=== PATIENT | female | born 1965 | race Caucasian/White ===

== ENCOUNTER 2017-06-11 07:33 | Inpatient (IN) | payer BC, OTHER ==
[~2017-06-11] VITALS: Ht 167.6 cm; Wt 81.6 kg
[2017-06-12] MEDS ORDERED: ACETAMINOPHEN 325 MG TABLET PO PRN (15:00)
[2017-06-12] MEDS ORDERED: HYDROXYZINE PAMOATE 25 MG CAPSULE PO PRN (15:00)
[2017-06-12] MEDS ORDERED: ONDANSETRON 4 MG/2 ML VIAL IM PRN (15:00)
[2017-06-12] MEDS ORDERED: LOPERAMIDE HCL 2 MG CAPSULE PO PRN ×2 (15:00)
[2017-06-12] MEDS ORDERED: LORAZEPAM 2 MG/1 ML VIAL IM PRN (15:00)
[2017-06-12] MEDS ORDERED: diphenhydrAMINE 50 MG CAPSULE PO PRN (15:00)
[2017-06-12] MEDS ORDERED: LORAZEPAM 1 MG TABLET PO PRN ×2 (15:00)
[2017-06-12] MEDS ORDERED: MAG HYDROX/AL HYDROX/SIMETH 30 ML LIQUID UDC PO PRN (15:00)
[2017-06-12] MEDS ORDERED: CLONIDINE HCL 0.1 MG TABLET PO PRN (15:00)
[2017-06-12] MEDS ORDERED: ONDANSETRON ODT 4 MG TAB.RAPDIS SL PRN (15:00)
[2017-06-12 15:29] LABS: *URINE HCG, QUAL NEGATIVE (NEGATIVE)
[2017-06-12 15:34] LABS: ALANINE AMINOTRANSFERASE 24 U/L (14-59); ALKALINE PHOSPHATASE 119 U/L (50-136); ASPARTATE AMINOTRANSFERASE 26 U/L (15-37); BILIRUBIN,TOTAL 0.3 mg/dL (0.2-1.0); CARBON DIOXIDE 27 mmol/L (21-32); CHLORIDE 101 mmol/L (98-107); CREATININE 0.9 mg/dL (0.6-1.3); GLUCOSE 109 mg/dL (74-106); MAGNESIUM 1.9 mg/dL (1.8-2.4); POTASSIUM 3.7 mmol/L (3.5-5.1); TOTAL PROTEIN, SERUM 7.9 g/dL (6.4-8.2); UREA NITROGEN, BLOOD 17 mg/dL (7-18)
[2017-06-12 15:36] LABS: BASOPHILS % (AUTO) 0.4 % (0.0-2.0); EOSINOPHILS # (AUTO) 0.3 K/uL (0.0-0.7); EOSINOPHILS % (AUTO) 3.3 % (0.0-7.0); HEMATOCRIT 41.8 % (31.2-41.9); HEMOGLOBIN 14.4 g/dL (10.9-14.3); LYMPHOCYTES # (AUTO) 1.9 K/uL (20.0-40.0); MEAN CORPUSCULAR HEMOGLOBIN 30.2 uug (24.7-32.8); MEAN CORPUSCULAR HGB CONC 34 g/dL (32.3-35.6); MEAN CORPUSCULAR VOLUME 87.6 fL (75.5-95.3); MONOCYTES # (AUTO) 0.5 K/uL (2.0-10.0); MONOCYTES % (AUTO) 6.6 % (0.0-11.0); NEUTROPHILS # (AUTO) 5.1 K/uL (1.8-8.9); NEUTROPHILS % (AUTO) 65.7 % (38.5-71.5); PLATELET COUNT (AUTO) 257 K/uL (179-408); RED BLOOD CELL COUNT(AUTO) 4.77 MIL/uL (3.63-4.92); WHITE BLOOD COUNT (AUTO) 7.8 K/uL (3.8-11.8)
--- NOTE | 2017-06-12 15:50 | NUR ---
PRE ADMISSION 51 year old female at intake office, alert and oriented x4. Noted with anxious and worried affect. bp: 121/85 hr: 78 t: 98.0 r: 16 o2 sat: 96% room air. patient reports no known drug or food allergies. Patient reports past medical history of: bipolar d/o, insomnia, hysterectomy, appendectomy, endometriosis, and laparoscopic endometrial excisions x5. Patient denies any history of seizures. primary care physician: Dr. Aneesh Fields in [place]. Patient reports substance use of: methadone 30mg daily PO for 2.5 years has been taking for pain mgmt of endometriosis, per patient medication is having bad side effects as having GI "issues" and weight gain. Patient brought a list of home medications that she takes at home, but did not bring medications with her. Patient denies any family history of substance abuse and denies any family history of pre existing medical conditions. patient was educated regarding all unit policies and procedures with good verbal understanding. Patient was seen by Dr. Blas at intake office, prior to nursing pre admission assessment.
--- NOTE | 2017-06-12 16:05 | NUR ---
ADMISSION Patient arrived to unit, noted ambulating with steady gait. patients body search completed by female MANAGER MILITARY, no contraband found. Body assessment completed, patient skin is intact, no breakdown, bruising or discoloration was noted. patient is 5 feet 6 inches tall and weighs 180 lbs. Patient was oriented to unit and to room, educated regarding call light use with good verbal understanding. Patient reports she lives alone in [facility]. patient reports substance use of: methadone 30mg daily by mouth for 2.5 years, last used: 06/12/2017 at 1000, 10mg. Reports first time in detox/rehab. Patient reports began taking methadone for pain mgmt due to endometriosis pain mgmt. reports past medical history of: insomnia, and bipolar d/o Dx: 12 years ago. hysterectomy in 2002, appendectomy in 1977, Laparoscopic endometrial excision x5 and endometriosis. Patient brought a list of home medications that she takes, but did not bring any medications with her. List of medications were entered to reconciled medications under [facility]. patient denies any history of seizures. Patient currently laying in bed, alert and oriented x4, noted with restlessness, anxiety and irritable, with admitting cow score of: 4, and admitting ciwa score of: 6. Patients respirations are even and unlabored, no SOB, lungs clear upon auscultation. Patients abdomen is soft with mild distention, positive bowel sounds heard in all quadrats, patients pupils are equal and reactive to light, 3mm. Patients safety measures are in place. patient is currently to begin a modified Ativan taper as ordered, and will continue under close observation for any s/sx of methadone withdrawal. will continue to monitor. psychiatrist was notified of admission. will continue to monitor.
[2017-06-12] MEDS ORDERED: ESTR0.5T PO (16:14)
[2017-06-12] MEDS ORDERED: BUPR-96 PO (16:14)
[2017-06-12] MEDS ORDERED: TOPI100T PO (16:14)
[2017-06-12] MEDS ORDERED: QUET200T PO (16:14)
[2017-06-12] MEDS ORDERED: CITA10TA9 PO (16:14)
[2017-06-12] MEDS ORDERED: ESZO3TAB27 PO (16:14)
[2017-06-12 17:11] VITALS: BP 121/85
[2017-06-12] MEDS: LORAZEPAM 1 MG TABLET PO SCH ×2 (17:17→21:13)
[2017-06-12 18:14] LABS: ETHANOL < 3 MG/DL (0-0)
[2017-06-12 18:44] LABS: *AMPHETAMINE, URINE NEGATIVE (NEGATIVE); *BARBITURATE, URINE NEGATIVE (NEGATIVE); *CANNABINOID, URINE NEGATIVE (NEGATIVE); *COCCAINE, URINE NEGATIVE (NEGATIVE); *OPIATE, URINE NEGATIVE (NEGATIVE); *PHENCYCLIDINE SCREEN,URINE NEGATIVE (NEGATIVE)
--- NOTE | 2017-06-12 18:48 | NUR ---
END OF SHIFT Patient alert and oriented x4, Patient has anxious, worried, and irritable facial expression. Mood is flat and labile. Patient continues under close observation, placed on modified Ativan taper as ordered. Patient with admitting Dx: methadone withdrawal. During shift presented with: restlessness, anxiety, and irritability initial ciwa score of: 6, and cow score of: 4 and last ciwa score of: 6, last cow score of: 4 Received no PRN medications during shift. patient was encouraged adequate PO fluid intake as tolerated, patient encouraged to develop coping skills and utilization of non pharmacological interventions. Patient was encouraged to participate in therapy session.Encouraged diversional activities to alleviate anxiety. Denies any SI/HI. Safety measures are in place. Call light kept with in reach, continues under close observation. Patient endorsed to nuclear process engineer nurse, all pertinent information was discussed. Will continue to monitor.
[2017-06-12 18:58] LABS: THYROID STIMULATING HORMONE 1.972 mIU/mL (0.358-3.740)
--- NOTE | 2017-06-12 19:00 | NUR ---
Start of Shift Patient Received. Patient is in bed awake, alert and verbally responsive. Breathing even and non labored. Patient is noted to be anxious, easily irritable, and flat. Per endorsement, Patient is currently receiving a modified 6 day Ativan taper. Patient was given PRN Ativan 2mg and tolerated well. All needs attended to promptly. Will continue to monitor.
[2017-06-12] MEDS ORDERED: PHEN-704 PO (19:54)
[2017-06-12] MEDS ORDERED: NEOM14.216 TP (19:54)
[2017-06-12] MEDS ORDERED: BISM262T18 PO (19:54)
[2017-06-12] MEDS ORDERED: TOPIRAMATE 100 MG TABLET PO ONE (20:45)
[2017-06-12] MEDS ORDERED: QUETIAPINE FUMARATE 200 MG TABLET PO ONE (20:45)
[2017-06-12 20:56] VITALS: BP 114/64
[2017-06-12] MEDS: GABAPENTIN 300 MG CAPSULE PO SCH (21:13)
--- NOTE | 2017-06-12 21:15 | NUR ---
MD Communication/Vitals Refused Medications explained to patient and patient was noted easily agitated due to patient not receiving home medications of Seroquel, Topamax, and Lunesta. explained to patient that psychiatrist would need to see and evaluate patient and place orders at that moment. Also explained to patient that Lunesta would not be prescribed here while on unit. Patient states "I'm not understanding. Lunesta is not my problem. I take that daily for sleep. If I dont take it then I dont sleep. I dont want to be awake for 14 days while I'm here." Explained to patient that she could speak to MD in the morning in regards to medication and speak to psychiatrist as for any other medications for sleep. Patient verbalized "I need my mental health medications." Relayed to Psychiatrist with one time orders for Seroquel 200 and Topamax 150mg. orders noted and carried out. Medications administered with routine medications. patient still visibly upset about home medication Lunesta. Patient then verbalized "Im not understanding why it is taking forever to get my luggage to my room or my clothes so I can change, or even my toiletry bag. This is so ridiculous." explained to patient unit protocols and rules which were explained to patient in intake. Patient then stated "no one ever told me any of these rules." Explained to patient that Vitals would be taken at 0000 and 0400. Patient states "You are not going to give me my Lunesta and your are going to wake me up during the night. When I already have problems sleeping." Risks and Benefits explained. Patient refused both vitals. All needs attended to promptly. Will continue to monitor.
[2017-06-13 07:06] LABS: HEPATITIS B SURFACE AG Negative (Negative)
--- NOTE | 2017-06-13 07:12 | NUR ---
End of Shift Patient is in bed awake, alert and verbally responsive. Breathing even and non labored. Patient continues on a modified 6 day Ativan taper. No PRN medications received. Patient received onetime doses home medications of Seroquel 200mg and Topamax 150mg. Patient was noted to be flat, easily irritable, and anxious. Patient slept a total of 7 hours. last noted COWS 8 and CIWA 10. All needs attended to promptly. Will endorse to continue plan of care as ordered.
--- NOTE | 2017-06-13 07:45 | NUR ---
START OF SHIFT Pt is a 51 yr old female, admitted on 06/12/17 for medically supervise withdrawal from methadone use. Pt was place on a 6 day modified Ativan taper to start today on 06/13/17. Subutex is on hold per MD until 06/14/17. Received report from security shift supervisor nurse. No PRN's were given during the night. Pt slept for 7 hrs. Last COWS score was 8 and CIWA score was 10. Pt is currently in bed sleeping with respirations even and unlabored. Safety precautions observed. Call light is within reach. Will continue to monitor.
--- NOTE | 2017-06-13 08:00 | NUR ---
COWS AND CIWA DEFERRED Pt is currently in bed sleeping with respirations even and unlabored. COWS and CIWA score are deferred at this time. safety precautions observed. Will continue to monitor.
[2017-06-13 08:31] VITALS: BP 115/67
[2017-06-13] MEDS ORDERED: INFLUENZA VACCINE 2017-2018 0.5 ML DISP.SYRIN IM ONE (09:00)
[2017-06-13] MEDS ORDERED: TUBERCULIN,PURIF.PROT.DERIV. 5 TU/0.1 ML TEST ID ONE (09:00)
[2017-06-13] MEDS ORDERED: PNEUMOCOCCAL 23-VAL P-SAC VAC 0.5 ML VIAL IM ONE (09:00)
[2017-06-13] MEDS ORDERED: PATIENT MAY USE OWN MED- MD OK PO SCH (09:00)
[2017-06-13] MEDS: GABAPENTIN 300 MG CAPSULE PO SCH ×3 (09:36→20:20)
[2017-06-13] MEDS: ESTRADIOL 1 MG TABLET PO SCH (09:36)
[2017-06-13] MEDS: LORAZEPAM 1 MG TABLET PO SCH ×3 (09:36→20:10)
--- NOTE | 2017-06-13 09:45 | NUR ---
NSG NOTES During medication administration, pt became very agitated in regards to her belongings stating she has been waiting for her toiletries. Pt was spoken to in regards to the units rules and regulations but pt was unable to comprehend. Pt continued to speak out loud and requesting for her toiletries. COWS and CIWA was assessed at 0930. COWS score was 12 and CIWA 11. Report to Sterling administration, in regards to pt belongings. Per Sterling, will speak with pt. Will continue to f/u.
[2017-06-13] MEDS: MIRALAX 17 GM POWD.PACK PO PRN (09:54)
--- NOTE | 2017-06-13 09:54 | NUR ---
PRN GIVEN Pt c/o constipation. Miralax 17gm PRN was given as ordered for constipation. Encouraged increase fluid intake. Will continue to monitor.
[2017-06-13 12:00] VITALS: BP 115/71
[2017-06-13 16:00] VITALS: BP 115/68
[2017-06-13] MEDS: CITALOPRAM 10 MG TABLET PO SCH (16:46)
[2017-06-13] MEDS: buPROPion XL 150 MG TAB.SR.24H PO SCH (16:46)
--- NOTE | 2017-06-13 19:00 | NUR ---
END OF SHIFT Pt is a 51 yr old female, AA&Ox4. Pt was admitted on 06/12/17 for medically supervised withdrawal from methadone. Pt started on 6 day modified Ativan taper and is to start on 6 day Subutex taper on 06/14/17. Pt has been observed with increase fatigue and remained in bed throughout the day. pt refused to attend group sessions. Pt was observed with increase agitation in the morning due to her getting her belongings. Sterling, Sketch Maker, was able to provide the pt with her request and was satisfied. Pt c/o generalized muscle aching, abdominal cramps and headache. Last COWS score was 8 and CIWA score was 9 at 1600. Pt received Miralax PRN for constipation, medication was effective and reported of 2 BM. Encouraged increase fluid intake. Endorsed to welt stitch cleaner nurse.
--- NOTE | 2017-06-13 19:30 | NUR ---
START OF SHIFT Received 51 year old female. Pt noted to be anxious, and irritable. Pt stated " I feel jittery and my head feels cloudy." She complains of stomach cramps, nausea and body aches. Pt is alert and oriented x4. Per endorsement, she received PRN Miralax and reported BM x2. Breathing is even and unlabored, safety measures in place. Will continue to monitor.
[2017-06-13 20:00] VITALS: BP 124/69
[2017-06-13] MEDS: QUETIAPINE FUMARATE 200 MG TABLET PO PRN (20:10)
--- NOTE | 2017-06-13 20:10 | NUR ---
PRN SEROQUEL Pt complains of inability to fall asleep. PRN Seroquel administered as ordered. Safety measures in place. Will continue to monitor.
[2017-06-13] MEDS: TOPIRAMATE 100 MG TABLET PO SCH (20:11)
--- NOTE | 2017-06-13 21:10 | NUR ---
PRN REASSESSMENT PRN medication effective. Pt is lying in bed with eyes closed noted to be asleep. Breathing is even and unlabored. Safety measures in place. Will continue to monitor.
--- NOTE | 2017-06-14 | NUR ---
VITALS REFUSED, COWS/ CIWA DEFERRED 0000 vitals refused. COWS and CIWA deferred d/t pt lying in bed with eyes closed noted to be asleep. Breathing is even and unlabored. Safety measures in place. Will continue to monitor.
--- NOTE | 2017-06-14 04:00 | NUR ---
VITALS REFUSED, COWS/ CIWA DEFERRED 0400 vitals refused. COWS and CIWA deferred d/t pt lying in bed with eyes closed noted to be asleep. Breathing is even and unlabored. Safety measures in place. Will continue to monitor.
--- NOTE | 2017-06-14 07:02 | NUR ---
END OF SHIFT Pt is a 51 year old female. Pt remains alert and oriented x4. She had complaints of stomach cramps, body aches, anxiety, and restlessness during shift. She verbalized that she has trouble sleeping and received PRN Seroquel at 2009. She is scheduled to start her 5 day Subutex taper today. She slept a total of 7 hrs, Intake: 1630mL, Void: x3, BM:0, CIWA: 12, COWS:6. Breathing is even and unlabored, safety measures in place. Endorsed to AM shift.
--- NOTE | 2017-06-14 07:30 | NUR ---
START OF SHIFT Pt is a 51 yr old female, admitted on 06/12/17 for medically supervise withdrawal from methadone use. Pt is on day 2 of 6 day modified Ativan taper and is to start on 5 day Subutex taper today. Received report from overnight caregiver nurse. Pt received Seroquel PRN for sleep. Medication was effective and slept for 8 hrs. Last COWS score was 6 and CIWA score was 12. Pt is currently in bed sleeping with respirations even and unlabored. Safety precautions observed. Call light is within reach. Will continue to monitor.
[2017-06-14 08:13] VITALS: BP 103/63
[2017-06-14] MEDS ORDERED: BUPRENORPHINE HCL 2 MG TAB.SUBL SL PRN (09:00)
[2017-06-14] MEDS: BUPRENORPHINE HCL 2 MG TAB.SUBL SL SCH ×4 (09:12→20:15)
[2017-06-14] MEDS: ESTRADIOL 1 MG TABLET PO SCH (09:12)
[2017-06-14] MEDS: LORAZEPAM 1 MG TABLET PO SCH ×4 (09:12→20:14)
[2017-06-14] MEDS: buPROPion XL 150 MG TAB.SR.24H PO SCH (09:12)
[2017-06-14] MEDS: CITALOPRAM 10 MG TABLET PO SCH (09:12)
[2017-06-14] MEDS: GABAPENTIN 300 MG CAPSULE PO SCH ×3 (09:12→20:14)
[2017-06-14 12:00] VITALS: BP 103/62
--- NOTE | 2017-06-14 14:22 | NUR ---
Therapist prompted client about group times. Client stated she would attend the afternoon group.
[2017-06-14 16:00] VITALS: BP 121/65
--- NOTE | 2017-06-14 17:08 | NUR ---
PRN GIVEN Pt c/o nausea, pt denies any episodes of vomiting. Zofran 4mg SL PRN was giving as ordered. Encouraged increase fluid intake. Will continue to monitor.
--- NOTE | 2017-06-14 18:08 | NUR ---
PRN RE-ASSESSMENT Zofran PRN was effective. Pt denies any n/v.
--- NOTE | 2017-06-14 19:16 | NUR ---
END OF SHIFT NOTE Pt is a 51 yr old female, AA&Ox4. Pt was admitted on 06/12/17 for medically supervised withdrawal from methadone. Pt is on 6 day modified Ativan taper and started on 5 day Subutex taper. Medication was victoriano well. Pt has been cooperative with medication regimen. Pt was encouraged to attend group but refused to go, stating "I don't feel all there". Pt c/o anxiety, abdominal cramping, and nausea. Zofran 4mg SL PRN was given for nausea. Medication was effective. Pt consumed 100% of meals Encouraged increase fluid intake. Last COWS score was 8 and CIWA score was 8 at 1600. Endorsed to manager night nurse.
[2017-06-14 20:00] VITALS: BP 127/71
--- NOTE | 2017-06-14 20:00 | NUR ---
START OF SHIFT NOTE RECEIVED REPORT FROM DAY SHIFT NURSE. PATIENT IS A 51 YEAR OLD FEMALE ADMITTED FOR METHADONE WITHDRAWAL. PATIENT IS ON ATIVAN AND SUBUTEX TAPER. PATIENT WAS GIVEN PRN ZOFRAN . LAST COWS 8 AND CIWA 8. RECEIVED PATIENT IN THE ROOM, WATCHING TV. PATIENT STATES SHES TIRED, ANXIOUS, A LITTLE BIT EDGY, DID NOT ATTEND GROUPS BUT WILL TRY TOMORROW, BACK PAIN 5/10. SAFETY MEASURES IN PLACE. CALL LIGHT IN REACH. WILL CONTINUE TO MONITOR
[2017-06-14] MEDS: QUETIAPINE FUMARATE 200 MG TABLET PO PRN (20:14)
[2017-06-14] MEDS: IBUPROFEN 600 MG TABLET PO PRN (20:14)
--- NOTE | 2017-06-14 20:14 | NUR ---
PRN SEROQUEL AND MOTRIN ADMINISTRATION PATIENT C/O PAIN ON LOWER BACK AND REQUESTS FOR SLEEP AID. WILL MONITOR FOR EFFECTIVENESS
[2017-06-14] MEDS: TOPIRAMATE 100 MG TABLET PO SCH (20:15)
--- NOTE | 2017-06-14 21:14 | NUR ---
PRN MOTRIN RE-ASSESSMENT PATIENT STATES PAIN LEVEL IS 2/10 AT THIS TIME, TOLERABLE.
--- NOTE | 2017-06-14 22:00 | NUR ---
PRN SEROQUEL RE-ASSESSMENT PATIENT IN BED WITH EYES CLOSED. RESPIRATION EVEN AND UNLABORED. SAFETY MEASURES IN PLACE. CALL LIGHT IN REACH . WILL CONTINUE TO MONITOR
--- NOTE | 2017-06-15 | NUR ---
COWS/CIWA DEFERRED PATIENT IN BED WITH EYES CLOSED. VS REFUSED. RESPIRATION EVEN AND UNLABORED. SAFETY MEASURES IN PLACE. CALL LIGHT IN REACH . WILL CONTINUE TO MONITOR
--- NOTE | 2017-06-15 07:14 | NUR ---
END OF SHIFT NOTE PATIENT SLEPT 8 HOURS. FLUID INTAKE 1,355 ML. VOIDED X 4. NO BM. MONITORED PATIENT THROUGHOUT SHIFT. MEDICATION GIVEN ORDERED, TOLERATED WELL AND NO ADVERSE REACTION NOTED. PATIENT WAS C/O LOWER BACK PAIN, PRN TYLENOL GIVE. SHE REQUESTED FOR SLEEP AID , PRN SEROQUEL GIVE. PATIENT IN THE ROOM MOST OF THE SHIFT, PATIENT TENDS TO BE ISOLATIVE. PER PATIENT SHE WILL TRY TO GO AND ATTEND GROUPS TODAY. SAFETY MEASURES IN PLACE. CALL LIGHT IN REACH. WILL CONTINUE TO MONITOR. LAST COWS 8 AND CIWA 7
--- NOTE | 2017-06-15 07:30 | NUR ---
START OF SHIFT RECEIVED PT LAYING IN BED, A/O X4, RESPIRATIONS EVEN AND UNLABORED. PT REPORTS HAVING LOW BACK PAIN, STOMACH CRAMPS, GENERALIZED BODY ACHES, ANXIETY AND INTERMITTENT SWEATING. PT APPEARS AGITATED, STATES, "IF ONLY I CAN GET MY OWN CLOTHES, I HAVE BEEN WEARING THE SAME CLOTHES FOR DAYS." OFFERED PT A PAIR OF HOSPITAL BOTTOMS, AND T-SHIRT BUT PT REFUSED. ALL SAFETY MEASURES IN PLACE. WILL CONTINUE TO MONITOR.
[2017-06-15 08:00] VITALS: BP 103/63
[2017-06-15] MEDS: GABAPENTIN 300 MG CAPSULE PO SCH ×3 (08:59→20:48)
[2017-06-15] MEDS: buPROPion XL 150 MG TAB.SR.24H PO SCH (08:59)
[2017-06-15] MEDS: CITALOPRAM 10 MG TABLET PO SCH (08:59)
[2017-06-15] MEDS: METHOCARBAMOL 750 MG TABLET PO PRN ×2 (08:59→20:47)
[2017-06-15] MEDS: DICYCLOMINE HCL 20 MG TABLET PO PRN ×3 (08:59→22:07)
[2017-06-15] MEDS: LORAZEPAM 1 MG TABLET PO SCH ×2 (08:59→15:52)
--- NOTE | 2017-06-15 08:59 | NUR ---
PRN BENTYL 20 MG PO PRN AND ROBAXIN 750 MG PO PRN GIVEN FOR STOMACH CRAMPS AND BODY ACHES, BACK ACHE 10/04. WILL MONITOR FOR EFFECTIVENESS.
[2017-06-15] MEDS: BUPRENORPHINE HCL 2 MG TAB.SUBL SL SCH ×3 (09:00→20:47)
[2017-06-15] MEDS: ESTRADIOL 1 MG TABLET PO SCH (09:01)
--- NOTE | 2017-06-15 09:59 | NUR ---
REASSESSMENT PT REPORTED MEDS EFFECTIVE FOR STOMACH CRAMPS AND BODY ACHES. BACK ACHE NOW 07/04. WILL CONTINUE TO MONITOR.
--- NOTE | 2017-06-15 11:14 | NUR ---
Therapist prompted client to come to groups today.
[2017-06-15 12:00] VITALS: BP 130/90
[2017-06-15 16:00] VITALS: BP 97/66
--- NOTE | 2017-06-15 16:06 | NUR ---
PRN BENTYL 20 MG PO PRN GIVEN FOR STOMACH CRAMPS. WILL MONITOR FOR EFFECTIVENESS.
--- NOTE | 2017-06-15 19:35 | NUR ---
END OF SHIFT LAST COWS 11 AND CIWA 11 @1600. PT IS LABILE AND EMOTIONALLY VOLATILE, PRESENTS AGITATION, ANXIETY AND RESTLESSNESS. PT VERBALIZED BEING AGITATED AND IRRITABLE THROUGHOUT SHIFT. PT WAS UPSET ABOUT NOT BEING ABLE TO HAVE CERTAIN PERSONAL ITEMS ON UNIT AND DEMANDED THEM TO BE GIVEN TO HER. PAPERWORK WAS FILLED OUT FOR ALLOWED PERSONAL ITEMS TO BE BROUGHT UP FROM [employer]ORAGE AND OTHER ITEMS EXPLAINED TO HER THAT IT WAS NOT ALLOWED ON UNIT. PT VERBALIZED UNDERSTANDING BUT WANTED ITEMS PROMPTLY. PT WAS GIVEN JANE AND GARETT AND WAS EFFECTIVE. ALL SAFETY MEASURES IN PLACE. WILL GIVE PERTINENT INFO AND ENDORSEMENT TO LASTING MACHINE OPERATOR NURSE.
[2017-06-15 20:00] VITALS: BP 118/71
--- NOTE | 2017-06-15 20:00 | NUR ---
START OF SHIFT NOTE RECEIVED REPORT FROM DAY SHIFT NURSE. PATIENT IS A 51 YEAR OLD FEMALE ADMITTED FOR METHADONE WITHDRAWAL. CONTINUE ON ATIVAN AND SUBUTEX TAPER, TOLERATED WELL AND NO ADVERSE REACTION. PATIENT WAS GIVEN PRN BENTYL AND ROBAXIN. LAST COWS 12 AND CIWA 11. RECEIVED PATIENT IN THE ROOM. CLOTHES NOTED ON FLOOR. PATIENT NOTED ANXIOUS, AGITATED, IRRITABLE, ANGRY AND HYPERVERBAL. PATIENT OBSESSED, FOCUSED ON HER BELONGINGS DESPITE UNIT POLICIES. CONTINUE TO REDIRECT AND RE-EDUCATED. SAFETY MEASURES IN PLACE. CALL LIGHT IN REACH. WILL CONTINUE TO MONITOR
[2017-06-15] MEDS: QUETIAPINE FUMARATE 200 MG TABLET PO PRN (20:45)
--- NOTE | 2017-06-15 20:45 | NUR ---
PRN SEROQUEL AND ROBAXIN ADMINISTRATION PATIENT C/O GENERALIZED BODY ACHES 5/10 AND REQUESTS FOR SLEEP AID . WILL MONITOR EFFECTIVENESS
[2017-06-15] MEDS: TOPIRAMATE 100 MG TABLET PO SCH (20:46)
[2017-06-15] MEDS ORDERED: LORAZEPAM 1 MG TABLET PO SCH (21:00)
--- NOTE | 2017-06-15 21:45 | NUR ---
PRN ROBAXIN RE-ASSESSMENT PATIENT STATES ROBAXIN IS HELPFUL . PAIN LEVEL 2/10 AT THIS TIME, TOLERABLE.
--- NOTE | 2017-06-15 22:00 | NUR ---
PRN SEROQUEL RE-ASSESSMENT PATIENT ANXIOUS AND STILL UNABLE TO SLEEP.
[2017-06-15] MEDS: IBUPROFEN 600 MG TABLET PO PRN (22:07)
--- NOTE | 2017-06-15 22:07 | NUR ---
PRN VISTARIL, MOTRIN AND BENTYL ADMINISTRATION PATIENT OF BACK PAIN 5/10 , ABDOMINAL CRAMPING , ANXIETY AND STILL UNABLE TO SLEEP. WILL MONITOR FOR EFFECTIVENESS
--- NOTE | 2017-06-15 23:07 | NUR ---
PRN VISTARILZACKARY AND GARETT RE-ASSESSMENT PATIENT IN BED WITH EYES CLOSED. RESPIRATION EVEN AND UNLABORED. NO FACIAL GRIMACING. SAFETY MEASURES IN PLACE. WILL CONTINUE TO MONITOR.
--- NOTE | 2017-06-16 | NUR ---
COWS/CIWA DEFERRED PATIENT SLEEPING. COWS/CIWA DEFERRED. VS REFUSED. RESPIRATION EVEN AND UNLABORED. SAFETY MEASURES IN PLACE. WILL CONTINUE TO MONITOR.
--- NOTE | 2017-06-16 04:00 | NUR ---
COWS/CIWA DEFERRED PATIENT SLEEPING. COWS/CIWA DEFERRED. VS REFUSED. RESPIRATION EVEN AND UNLABORED. SAFETY MEASURES IN PLACE. WILL CONTINUE TO MONITOR.
--- NOTE | 2017-06-16 07:27 | NUR ---
END OF SHIFT NOTE PATIENT SLEPT 7 HOURS. FLUID INTAKE 796 ML. VOIDED X 2 . NO BM .MONITORED THROUGHOUT SHIFT. PATIENT WAS OBSESSED, FOCUSED ON HER BELONGINGS DESPITE UNIT POLICIES. REDIRECTION AND RE-EDUCATED ON UNIT POLICIES. PATIENT WAS GIVEN PRN SEROQUEL FOR SLEEP., MILDLY EFFECTIVE. PRN VISTARIL GIVEN , ROBAXIN AND MOTRIN FOR PAIN AND BENTYL FOR ABDOMINAL CRAMPING. ENCOURAGE FLUIDS. SAFETY MEASURES IN PLACE. CALL LIGHT IN REACH. WILL CONTINUE TO MONITOR. LAST COWS 8 AND CIWA 7.
--- NOTE | 2017-06-16 07:48 | NUR ---
START OF SHIFT RECEIVED PT LAYING IN BED RESTING, A/OX4, RESPIRATIONS EVEN AND UNLABORED. PT REPORTS BEING VERY TIRED, GENERALIZED BODY ACHES, LOW BACK PAIN, STOMACH CRAMPS, INTERMITTENT SWEATING. ENCOURAGED PT TO ATTEND GROUPS TO PROMOTE COPING. MORE ENCOURAGEMENT NEEDED. SIDE RAILS UPX2, BED IN LOWEST POSITION. CALL LIGHT WITHIN REACH. SAFETY MEASURES IN PLACE. WILL CONTINUE TO MONITOR.
[2017-06-16 08:00] VITALS: BP 100/62
[2017-06-16] MEDS ORDERED: BUPRENORPHINE HCL 2 MG TAB.SUBL SL SCH (09:00)
[2017-06-16] MEDS: ESTRADIOL 1 MG TABLET PO SCH (09:21)
[2017-06-16] MEDS: GABAPENTIN 300 MG CAPSULE PO SCH ×3 (09:21→20:24)
[2017-06-16] MEDS: buPROPion XL 150 MG TAB.SR.24H PO SCH (09:21)
[2017-06-16] MEDS: CITALOPRAM 10 MG TABLET PO SCH (09:21)
[2017-06-16] MEDS: LORAZEPAM 1 MG TABLET PO SCH ×3 (09:22→20:22)
[2017-06-16] MEDS: DICYCLOMINE HCL 20 MG TABLET PO PRN (09:31)
--- NOTE | 2017-06-16 09:31 | NUR ---
PRN BENTYL 20 PO PRN GIVEN FOR STOMACH CRAMPS. WILL MONITOR FOR EFFECTIVENESS.
--- NOTE | 2017-06-16 10:31 | NUR ---
REASSESSMENT PT REPORTED BENTYL WAS EFFECTIVE FOR STOMACH CRAMPS. WILL CONTINUE TO MONITOR.
[2017-06-16 12:00] VITALS: BP 112/77
--- NOTE | 2017-06-16 12:48 | NUR ---
PT APPEARED VERY UPSET, ANGRY AND STARTED CRYING WHILE VERBALIZING HER FEELINGS. PT REFUSED HER LUNCH TRAY. PT STATED, "I FEEL SO FAT AND BLOATED. I WAS NOT LIKE THIS BEFORE. ALL THE OPIATES ARE MAKING ME LIKE THIS! I NEED TO BE ON A LIQUID DIET! I GAINED SO MUCH WEIGHT AND I AM FEELING SO UNCOMFORTABLE, I CAN'T DO THIS!" EXPLAINED TO PT THAT LIQUID DIET IS NOT THERAPEUTIC AT THIS TIME. PT EDUCATED ON BENEFITS OF CURRENT DIET. NEEDS MORE REINFORCEMENT AND ENCOURAGEMENT. DIETITIAN WILL EDUCATE PT ABOUT DIET AND NUTRITION. NOTIFIED .
--- NOTE | 2017-06-16 13:05 | NUR ---
PT AGREED TO HAVE SOMETHING FOR LUNCH. FRUITS WERE ACCEPTED BY THE PT. WILL CONTINUE MONITOR AND PROVIDE SUPPORT.
[2017-06-16] MEDS: DICYCLOMINE HCL 20 MG TABLET PO SCH ×2 (14:26→20:26)
[2017-06-16] MEDS: BUPRENORPHINE HCL 2 MG TAB.SUBL SL SCH ×2 (14:26→20:26)
--- NOTE | 2017-06-16 14:55 | NUR ---
Referred by RN to visit patient as patient had concern about weight loss Patient is 51 y/o female who present to [facility] for medically supervised withdrawal from opioids,patient states has gained since she started on antidepressants medication Spoke with the patient, noted, patient was agitated upset and was crying ,and requested to be on clear liquid diet. Explained that clear liquid diet is not appropriate as it does not provide adequate energy/kcal/protein/mineral/vitamins to stay healthy. Encourage her to consume protein foods and provided calorie diet for her when she d/c home then she can follow up, encourage to start exercising as she mentioned she used to exercise and has operations trainer. Patient agreed to follow up with diet aide for menu selection . Informed diet aide. Will f/u with PO intake, dietitian will be available upon request. Addendum: 06/16/17 at [address] Amended: Links added.
[2017-06-16 16:00] VITALS: BP 127/77
--- NOTE | 2017-06-16 18:34 | NUR ---
END OF SHIFT LAST COWS 10 AND CIWA 9. PT REFUSED LUNCH TODAY, WAS UPSET AND CRIED MULTIPLE TIMES ABOUT HER WEIGHT ISSUES. PT WANTED TO HAVE A LIQUID DIET AND ASKED TO HAVE DIET PILLS. REASSURED PT AND HAD DIETITIAN EDUCATE PT REGARDING NUTRITION AND DIET. PT WAS HEARD YELLING AT DIETIAN IN HER ROOM WITH THE DOOR CLOSED. PT STATED, "THE DIETITIAN DOES NOT KNOW WHAT SHE IS TALKING ABOUT. SHE IS TREATING ME LIKE A REGULAR PERSON." PT STATES SHE DOES NOT BELIEVE SHE HAS A PROBLEM WITH CHEMICAL DEPENDENCY. SHE STATES SHE WAS TAKING METHADONE THAT WAS PRESCRIBED TO HER TO MANAGE HER PAIN AND THEREFORE SHE FEELS SHE DOES NOT NEED TO ATTEND GROUPS OR GO TO REHAB. EDUCATED PT ON RISKS AND BENEFITS HOWEVER PT STATED, "I DONT NEED ALL OF THAT." REPORT WAS GIVEN THAT PT WAS VERY ACTIVE DURING AFTERNOON GROUP. ALL SAFETY MEASURES IN PLACE. WILL GIVE ENDORSEMENT AND PERTINENT INFO TO WOOL HAT SANDING MACHINE OPERATOR NURSE.
[2017-06-16 20:00] VITALS: BP 119/74
--- NOTE | 2017-06-16 20:00 | NUR ---
START OF SHIFT NOTE RECEIVED REPORT FROM DAY SHIFT NURSE. PATIENT IS A 51 YEAR OLD FEMALE ADMITTED FOR METHADONE WITHDRAWAL. CONTINUE ON ATIVAN AND SUBUTEX TAPER, TOLERATED WELL AND NO ADVERSE REACTION. PATIENT WAS AGITATED AND ANXIOUS DURING THE DAY. PRN BENTYL GIVEN. LAST COWS 10 AND CIWA 9. RECEIVED PATIENT IN THE ROOM. PATIENT ANXIOUS, ANGRY, IRRITABLE, EMOTIONAL , PATIENT CONTINUES TO BE OBSESSIVE/FOCUSED ON HER BELONGINGS AND SHE C/O LOWER ABDOMEN PAIN. REDIRECTION PROVIDED. SAFETY MEASURES IN PLACE. CALL LIGHT IN REACH. WILL CONTINUE TO MONITOR.
[2017-06-16] MEDS: QUETIAPINE FUMARATE 200 MG TABLET PO PRN (20:22)
--- NOTE | 2017-06-16 20:22 | NUR ---
PRN ROBAXIN AND SEROQUEL ADMINISTRATION PATIENT C/O LOWER ABDOMINAL PAIN AND REQUESTS FOR SLEEP AID. WILL MONITOR FOR EFFECTIVENESS
[2017-06-16] MEDS: METHOCARBAMOL 750 MG TABLET PO PRN (20:25)
[2017-06-16] MEDS: TOPIRAMATE 100 MG TABLET PO SCH (20:26)
[2017-06-16] MEDS: KETOROLAC TROMETHAMINE 30 MG INJ IM PRN (20:37)
--- NOTE | 2017-06-16 20:37 | NUR ---
PRN TORADOL IM ADMINISTRATION PATIENT C/O LOWER ABDOMINAL PAIN. WILL MONITOR FOR EFFECTIVENESS
--- NOTE | 2017-06-16 21:37 | NUR ---
PRN TORADOL IM AND ROBAXIN RE-ASSESSMENT PATIENT STATES TORADOL IM AND ROBAXIN HELPFUL. /10 PAIN, TOLERABLE. WARM COMPRESS PROVIDED.
--- NOTE | 2017-06-17 | NUR ---
SEROQUEL RE-ASSESSMENT/COWS/CIWA DEFERRED PATIENT SLEEPING. COWS/CIWA DEFERRED. VS REFUSED , RESPIRATION EVEN AND UNLABORED. SAFETY MEASURES IN PLACE. CALL LIGHT IN REACH. WILL CONTINUE TO MONITOR.
--- NOTE | 2017-06-17 04:00 | NUR ---
COWS/CIWA DEFERRED PATIENT SLEEPING. COWS/CIWA DEFERRED. VS REFUSED , RESPIRATION EVEN AND UNLABORED. SAFETY MEASURES IN PLACE. CALL LIGHT IN REACH. WILL CONTINUE TO MONITOR.
--- NOTE | 2017-06-17 07:19 | NUR ---
END OF SHIFT NOTE PATIENT SLEPT 7 HOURS. FLUID INTAKE 2,631 ML. VOIDED X 2 . NO BM. MONITORED PATIENT THROUGHOUT THE SHIFT. CONTINUE ON ATIVAN AND SUBUTEX TAPER, TOLERATED WELL AND NO ADVERSE REACTION. PATIENT WAS ANXIOUS, ANGRY, IRRITABLE, EMOTIONAL , PATIENT CONTINUES TO BE OBSESSIVE/FOCUSED ON HER BELONGINGS AND SHE C/O LOWER ABDOMEN PAIN. PRN ROBAXIN AND TORADOL IM GIVEN. PRN SEROQUEL GIVEN FOR SLEEP. WARM COMPRESS PROVIDED. SAFETY MEASURES IN PLACE. CALL LIGHT IN REACH. WILL CONTINUE TO MONITOR. LAST COWS 8 AND CIWA 8.
--- NOTE | 2017-06-17 07:41 | NUR ---
START OF SHIFT RECEIVED PT RESTING IN BED, A/OX4, RESPIRATIONS EVEN AND UNLABORED. PT REPORTS FEELING TIRED, HAVING RESTLESSNESS, IRRITABILITY, PAIN IN THE LOWER ABD. ENCOURAGED PT TO USE WARM COMPRESSSES. SIDE RAILS UP X2, BED IS IN LOWEST POSITION. CALL LIGHT WITHIN REACH. ALL SAFETY MEASURES IN PLACE. WILL CONTINUE TO MONITOR.
[2017-06-17 08:00] VITALS: BP 97/62
[2017-06-17] MEDS: BUPRENORPHINE HCL 2 MG TAB.SUBL SL SCH ×3 (10:05→21:00)
[2017-06-17] MEDS: LORAZEPAM 1 MG TABLET PO SCH ×2 (10:06→20:59)
[2017-06-17] MEDS: GABAPENTIN 300 MG CAPSULE PO SCH ×3 (10:06→20:59)
[2017-06-17] MEDS: ESTRADIOL 1 MG TABLET PO SCH (10:06)
[2017-06-17] MEDS: CITALOPRAM 10 MG TABLET PO SCH (10:06)
[2017-06-17] MEDS: buPROPion XL 150 MG TAB.SR.24H PO SCH (10:06)
[2017-06-17] MEDS: DICYCLOMINE HCL 20 MG TABLET PO SCH ×3 (10:07→21:00)
[2017-06-17] MEDS: MIRALAX 17 GM POWD.PACK PO PRN (10:08)
--- NOTE | 2017-06-17 10:08 | NUR ---
PRN PT C/O CONSTIPATION AND ABD PAIN. MIRALAX PO PRN GIVEN WITH POWERADE. PT REFUSED TORADOL AND PO PRN PAIN MEDS. WILL CONTNUE TO MONITOR.
--- NOTE | 2017-06-17 11:08 | NUR ---
REASSESSMENT PT REPORTS MED NOT EFFECTIVE YET. STATES, "I THINK ITS GOING TO WORK. BUT i HAVEN'T HAD A BM YET." WILL CONTINUE TO MONITOR.
[2017-06-17 12:00] VITALS: BP 104/70
[2017-06-17] MEDS ORDERED: IBUPROFEN 800 MG TABLET PO PRN (12:15)
[2017-06-17 16:00] VITALS: BP 115/71
--- NOTE | 2017-06-17 18:55 | NUR ---
START OF SHIFT NOTE: Patient is a 51 year old female admitted for Methadone withdrawal. She is continues 5 day Ativan and 5 Day Subutex taper, which tolerated well. Patient is alert and oriented x4, resting on the bed. Patient is sad with poor eye contact, and said, " My anxiety increased, I have irritability and restlessness from my abdominal pain". CIWA 9 @1600 per day shift report. Patient presented with anxiety,agitation, tremors, restlessness, nervousness, sweats, c/o abdominal pain, nasal congestion, and fatigue. PRN Miralax PO given throughout the day for constipation, and was not effective, per day shift nurse report. Patient encouraged to express her feelings. Encouraged to fluids intake as tolerated. All needs met. Safety measures in place: Call light within reach, bed is locked and in lowest position, padded bed rails up bilaterally. Patient endorsed by outgoing day shift nurse. Report received. Will continue to monitor closely.
--- NOTE | 2017-06-17 18:55 | NUR ---
END OF SHIFT LAST COWS 9 AND CIWA 7 @1600. PT WAS EMOTIONALLY VOLATILE, APPEARED ANXIOUS, AND RESTLESS. PT C/O CONSTIPATION, MIRALAX WAS NOT EFFECTIVE, ENDORSED TO OPERATIONS PROGRAM MANAGER THAT PT REQUESTED ANOTHER MED FOR CONSTIPATION. ALL SAFETY MEASURES IN PLACE. WILL GIVE PERTINENT INFO TO OPERATIONS PROGRAM MANAGER NURSE.
[2017-06-17 20:00] VITALS: BP 117/67
[2017-06-17] MEDS: KETOROLAC TROMETHAMINE 30 MG INJ IM PRN (20:55)
--- NOTE | 2017-06-17 20:55 | NUR ---
PRN TORADOL INJ.(KETOROLAC TROMETHAMINE 30 MG INJ.) 30 MG/1 ML IM ADMINISTRATION PRN TORADOL INJ. 30 MG/1 ML IM ON LEFT DELTOID MUSCLE ADMINISTRATED FOR D/T "ENDOMETRIOSIS" CHRONIC PAIN "12/04". PATIENT TOLERATED WELL. ALL NEEDS MET. SAFETY MEASURES ON PLACE: CALL LIGHT WITHIN REACH, BED IS LOCKED, AND IN THE LOWEST POSITION, BED RAILS UP X2. WILL CONTINUE TO MONITOR CLOSELY.
[2017-06-17] MEDS: DOCUSATE SODIUM 250 MG CAPSULE PO PRN (21:00)
[2017-06-17] MEDS: TOPIRAMATE 100 MG TABLET PO SCH (21:00)
--- NOTE | 2017-06-17 21:00 | NUR ---
PRN COLACE (DOCUSATE SODIUM 250 MG CAPSULE) 250 MG 1 CAPSULE PO ADMINISTRATION PATIENT C/O CONSTIPATION ASKED AID. PRN COLACE (DOCUSATE SODIUM 250 MG CAPSULE) 250 MG 1 CAPSULE PO ADMINISTRATED WITH FULL GLASS OF WATER, ORDERED. PATIENT TOLERATED WELL. ALL NEEDS MET. SAFETY MEASURES ON PLACE: CALL LIGHT WITHIN REACH, BED IS LOCKED, AND IN THE LOWEST POSITION, BED RAILS UP X2. WILL CONTINUE TO MONITOR CLOSELY.
--- NOTE | 2017-06-17 21:25 | NUR ---
RE-ASSESSMENT PATIENT IS SLEEPING. RESPIRATIONS ARE EVEN AND UNLABORED. RR 16. PRN TORADOL INJ. 30 MG/1 ML IM ON LEFT DELTOID MUSCLE ADMINISTRATED FOR D/T "ENDOMETRIOSIS" CHRONIC PAIN "12/04" @2054 WAS EFFECTIVE. ALL NEEDS MET. SAFETY MEASURES ON PLACE: CALL LIGHT WITHIN REACH, BED IS LOCKED, AND IN THE LOWEST POSITION, BED RAILS UP X2. WILL CONTINUE TO MONITOR CLOSELY.
--- NOTE | 2017-06-17 22:00 | NUR ---
RE-ASSESSMENT PATIENT IS SLEEPING. RR 15. RESPIRATIONS ARE EVEN AND UNLABORED. PRN COLACE (DOCUSATE SODIUM 250 MG CAPSULE) 250 MG 1 CAPSULE PO ADMINISTRATED @2100 FOR CONSTIPATION UNABLE ASSESSED AT THIS TIME. ALL NEEDS MET. SAFETY MEASURES ON PLACE: CALL LIGHT WITHIN REACH, BED IS LOCKED, AND IN THE LOWEST POSITION, BED RAILS UP X2. WILL CONTINUE TO MONITOR CLOSELY.
[2017-06-17] MEDS: QUETIAPINE FUMARATE 200 MG TABLET PO PRN (23:22)
--- NOTE | 2017-06-17 23:22 | NUR ---
PRN SEROQUEL (QUETIAPINE FUMARATE 200 MG TABLET) 200 MG 1 TABLET PO ADMINISTRATION PRN Seroquel (Quetiapine Fumarate 200 mg 1 tablet) 200 mg 1 tablet administrated as ordered with full glass of water. Patient tolerated well. All needs met. Safety measures in place: Call light within reach, bed is locked in lowest position, padded bed rails up bilaterally. Will continue to monitor closely.
[2017-06-18] VITALS: BP 111/63
--- NOTE | 2017-06-18 00:22 | NUR ---
RE-ASSESSMENT Patient is sleeping. RR:15. Respirations are unlabored and even. PRN Seroquel (Quetiapine Fumarate 200 mg 1 tablet) 200 mg 1 tablet administrated @2322 was effective. All needs met. Safety measures in place: Call light within reach, bed is locked in lowest position, padded bed rails up bilaterally. Will continue to monitor closely.
[2017-06-18 04:00] VITALS: BP 101/60
--- NOTE | 2017-06-18 07:08 | NUR ---
END OF SHIFT NOTE: A 51 year old female presented for Methadone withdrawal, continues 5 day Ativan and 5 Day Subutex Taper which tolerated well. Withdrawal symptoms was closely monitored. Patient remains compliant with treatment plan, medications, and diet regime. Patient is alert and oriented x4. COWS=11, CIWA= 9 @2000, COWS=10,CIWA=8 @0000; Last COWS=6, CIWA=6 @0400. CIWA/COWS taken while patient was alert. Patient presented with anxiety, agitation, severe generalized body aches, restlessness, sweating, nasal stuffiness, and stomach pain. PRN Toradol 30 mg/1ml IM administrated for d/t "Endometriosis chronic pain 12/04" @2054, PRN Colace 250 mg PO, administrated for constipation @2099, and PRN Seroquel 200 mg PO administrated as ordered @2321 were effective. Safe and calm environment with minimized noises was provided. Patient slept 5 hours, intake 2,750 ml, voided x2, stool x1. Encouraged to fluids intake as tolerated. Encouraged to attending groups activities. All needs met. Safety measures in the place by hospital policy: Call light within reach, bed in the lowest position and locked, padded rails up x2. Patient endorsed to day shift nurse.
[2017-06-18 08:00] VITALS: BP 102/64
[2017-06-18] MEDS: buPROPion XL 150 MG TAB.SR.24H PO SCH (08:50)
[2017-06-18] MEDS: DICYCLOMINE HCL 20 MG TABLET PO SCH ×3 (08:51→20:35)
[2017-06-18] MEDS: CITALOPRAM 10 MG TABLET PO SCH (08:51)
[2017-06-18] MEDS: GABAPENTIN 300 MG CAPSULE PO SCH ×3 (08:51→20:35)
[2017-06-18] MEDS: ESTRADIOL 1 MG TABLET PO SCH (08:51)
[2017-06-18] MEDS ORDERED: LORAZEPAM 1 MG TABLET PO SCH (09:00)
[2017-06-18] MEDS ORDERED: BUPRENORPHINE HCL 2 MG TAB.SUBL SL SCH (09:00)
--- NOTE | 2017-06-18 09:30 | NUR ---
START OF SHIFT Received report from lieutenant shift supervisor nurse. Patient is 51 year old female admitted for medically supervised withdrawal from methadone. Alert and oriented X4. Patient is full code with NKA. On assessment this AM: CIWA 5 and COWS: 5. On Ativan and Subutex taper (last dose this morning). Denies SOB, chest pain. Patients vitals signs: BP 102/64, HR 70, Temp 98.5, RR16, 02 sat, pain 1/10. Patient reports anxiety, tremors, stomach cramps and dilated pupil noted. Patient complained of poor sleep. Patient reports toradol IM she received on lieutenant shift supervisor was effective for her body pain. Patient noted anxious about her breakfast and complained she keeps getting decaffeinated coffee, pt was shortly served with another coffee. Patient reported having 1 BM this morning. Patient has steady gait. Encouraged pt. to attend group meetings today. Will continue to monitor patient.
[2017-06-18 13:00] VITALS: BP 99/57
[2017-06-18] MEDS: MIRALAX 17 GM POWD.PACK PO PRN (13:11)
[2017-06-18] MEDS: DOCUSATE SODIUM 250 MG CAPSULE PO PRN (13:11)
--- NOTE | 2017-06-18 13:11 | NUR ---
PRN MAALOX, COLACE AND MIRALAX POWDER Patient complains of constipation, states she had a small BM this morning. Patient also complains of bloating. PRN maalox, colace and miralax powder given. Will continue to monitor patient.
--- NOTE | 2017-06-18 14:11 | NUR ---
REASSESSMENT PRN MAALOX, COLACE AND MIRALAX POWDER Patient complains of unresolved bloating at this time. MD was notified. Pending result for bowel movement at this time.
[2017-06-18] MEDS ORDERED: SIMETHICONE 80 MG TAB.CHEW PO PRN (15:15)
--- NOTE | 2017-06-18 15:29 | NUR ---
PRN SIMETHICONE Patient complains of unresolved bloating. PRN simethicone given. Will continue to monitor patient.
[2017-06-18 16:00] VITALS: BP 119/73
--- NOTE | 2017-06-18 16:29 | NUR ---
REASSESSMENT PRN SIMETHICONE Patient reports mild effectiveness, reports feeling better.
[2017-06-18] MEDS ORDERED: MAGNESIUM CITRATE 296 ML BOTTLE PO PRN (17:15)
--- NOTE | 2017-06-18 18:21 | NUR ---
PRN MAGNESIUM CITRATE Patient complains of constipation. Patient received PRN magnesium citrate. Will continue to monitor patient.
--- NOTE | 2017-06-18 19:15 | NUR ---
START OF SHIFT NOTE: 51 year old female presented for Methadone withdrawal. She is completed 5 day Ativan and 5 Day Subutex taper, which tolerated well. Patient reports NKA, Regular diet, is on Full Code, Fall Precautions. She is alert and oriented x4, resting on the bed. Patient is worry and sad with poor eye contact, and with uncombed hair. The patient was educated in safety and hygiene care. The patient was encouraged to independently perform hygiene care COWS=5, CIWA=5 @1600 per day shift report. Patient presented anxious, agitated, with tremors, restlessness, nervousness, sweats, severe abdominal pain, nasal congestion, and fatigue. PRN Maalox, Colace and Miralax powder administrated PO for constipation @1311, and PRN Magnesium Citrate administrated for constipation @1821 were ineffective, per day shift nurse report. Patient encouraged to express her feelings. Encouraged to fluids intake as tolerated. Patient is scheduled discharging tomorrow, 06/19/2017 @0930. All needs met. Safety measures in place: Call light within reach, bed is locked and in lowest position, padded bed rails up bilaterally. Patient endorsed by outgoing day shift nurse. Report received. Will continue to monitor closely.
--- NOTE | 2017-06-18 19:15 | NUR ---
END OF SHIFT Patient is 51 year old female admitted for medically supervised withdrawal from methadone. Alert and oriented X4. Patient is full code with NKA. Most recent CIWA: 5 and COWS: 5. Med compliant with routine meds during this shift. Completed Ativan and Subutex taper today (last dose this morning). Denies SOB, chest pain. Patient reports anxiety, tremors, stomach cramps and dilated pupil noted. Patient complained of bloating and constipation, PRN Maalox, colace, simethicone (bloating mildly improved, and had 1 small BM), and magnesium citrate given pending result. Patient tolerating meals without n/v. outside barrel lathe operatorcarpenter refrigerator will continue to monitor patient. Pending discharge tomorrow.
--- NOTE | 2017-06-18 19:21 | NUR ---
RE-ASSESSMENT PATIENT DENIES BM AT THIS TIME. PRN MAGNESIUM CITRATE ADMINISTRATED @1821 BY TAYLOR, DAY SHIFT NURSE WAS "NON EFFECTIVE". ENCOURAGE INCREASING CLEAR FLUIDS TOLERATED. ALL NEEDS MET. SAFETY MEASURES ON PLACE: CALL LIGHT WITHIN REACH, BED IS LOCKED, AND IN THE LOWEST POSITION, BED RAILS UP X2. WILL CONTINUE TO MONITOR CLOSELY.
[2017-06-18 20:00] VITALS: BP 116/65
[2017-06-18] MEDS: KETOROLAC TROMETHAMINE 30 MG INJ IM PRN (20:30)
--- NOTE | 2017-06-18 20:30 | NUR ---
PRN TORADOL INJ.(KETOROLAC TROMETHAMINE 30 MG INJ.) 30 MG/1 ML IM ADMINISTRATION PRN TORADOL INJ. 30 MG/1 ML IM ON RIGHT DELTOID MUSCLE ADMINISTRATED FOR D/T "ENDOMETRIOSIS" CHRONIC PAIN "12/04". PATIENT TOLERATED WELL. ALL NEEDS MET. SAFETY MEASURES ON PLACE: CALL LIGHT WITHIN REACH, BED IS LOCKED IN THE LOWEST POSITION, BED RAILS UP X2. WILL CONTINUE TO MONITOR CLOSELY.
[2017-06-18] MEDS: DOCUSATE SODIUM 100 MG CAPSULE PO SCH (20:35)
[2017-06-18] MEDS: TOPIRAMATE 100 MG TABLET PO SCH (20:35)
[2017-06-18] MEDS: QUETIAPINE FUMARATE 200 MG TABLET PO PRN (20:35)
--- NOTE | 2017-06-18 20:35 | NUR ---
COLACE (DOCUSATE SODIUM 250 MG CAPSULE) 250 MG 1 CAPSULE PO ADMINISTRATION PATIENT C/O CONSTIPATION ASKED AID. COLACE (DOCUSATE SODIUM 250 MG CAPSULE) 250 MG 1 CAPSULE PO ADMINISTRATED WITH FULL GLASS OF WATER, ORDERED. PATIENT TOLERATED WELL. ALL NEEDS MET. SAFETY MEASURES ON PLACE: CALL LIGHT WITHIN REACH, BED IS LOCKED, AND IN THE LOWEST POSITION, BED RAILS UP X2. WILL CONTINUE TO MONITOR CLOSELY.
--- NOTE | 2017-06-18 21:00 | NUR ---
RE-ASSESSMENT PATIENT REPORTS PAIN LEVEL"DECREASED FROM 8/10 TO 2/10". PRN TORADOL INJ. IM ADMINISTRATED @2029 WAS EFFECTIVE. ALL NEEDS MET. SAFETY MEASURES ON PLACE: CALL LIGHT WITHIN REACH, BED IS LOCKED, AND IN THE LOWEST POSITION, BED RAILS UP X2. WILL CONTINUE TO MONITOR CLOSELY.
--- NOTE | 2017-06-18 21:35 | NUR ---
RE-ASSESSMENT PATIENT REPORTS BM X1. COLACE (DOCUSATE SODIUM 250 MG CAPSULE) 250 MG 1 CAPSULE PO ADMINISTRATED ORDERED @2034 FOR CONSTIPATION WAS EFFECTIVE. ALL NEEDS MET. SAFETY MEASURES ON PLACE: CALL LIGHT WITHIN REACH, BED IS LOCKED, AND IN THE LOWEST POSITION, BED RAILS UP X2. WILL CONTINUE TO MONITOR CLOSELY.
[2017-06-19] VITALS: BP 103/67
[2017-06-19] MEDS ORDERED: HYDR-3895 PO
[2017-06-19] MEDS ORDERED: METH-406 PO
[2017-06-19] MEDS ORDERED: DICY20TA28 PO
[2017-06-19] MEDS ORDERED: IBUP-1957 PO
[2017-06-19] MEDS ORDERED: DOCU100C36 PO
[2017-06-19] MEDS ORDERED: GABA-534 PO ×2
--- NOTE | 2017-06-19 01:04 | NUR ---
PRN IMODIUM 4 MG 2 CAPSULES PO ADMINISTRATION PATIENT C/O DIARRHEA, AND ASKED AID. PRN IMODIUM 4 MG 2 CAPSULES PO ADMINISTRATED WITH FULL GLASS OF WATER, ORDERED. PATIENT TOLERATED WELL. ALL NEEDS MET. SAFETY MEASURES ON PLACE: CALL LIGHT WITHIN REACH, BED IS LOCKED IN THE LOWEST POSITION, BED RAILS UP X2. WILL CONTINUE TO MONITOR CLOSELY.
--- NOTE | 2017-06-19 02:04 | NUR ---
RE-ASSESSMENT PATIENT IS SLEEPING. RESPIRATIONS ARE EVEN AND UNLABORED. PRN IMODIUM 4 MG 2 CAPSULES PO ADMINISTRATED @0104 FOR DIARRHEA WAS EFFECTIVE. ALL NEEDS MET. SAFETY MEASURES ON PLACE: CALL LIGHT WITHIN REACH, BED IS LOCKED IN THE LOWEST POSITION, BED RAILS UP X2. WILL CONTINUE TO MONITOR CLOSELY.
[2017-06-19 04:00] VITALS: BP 101/62
--- NOTE | 2017-06-19 07:04 | NUR ---
END OF SHIFT NOTE: A 51 year old female presented for Methadone withdrawal. Withdrawal symptoms was closely monitored. Patient remains compliant with treatment plan, medications, and diet regime. Patient is alert and oriented x4. COWS=8, CIWA=11 @2000, COWS=8,CIWA=8 @0000; Last COWS=9, CIWA=8 @0400. CIWA/COWS taken while patient was alert. Patient presented with anxiety, agitation, severe generalized body aches, restlessness, sweating, nasal stuffiness,stomach pain, and diarrhea. PRN Toradol 30 mg/1ml IM administrated for d/t "Endometriosis chronic pain 12/04" @2029, Colace 250 mg PO, administrated for constipation @2034, and PRN Imodium 4 mg PO administrated for diarrhea, as ordered @103 were effective. Encouraged to fluids intake as tolerated. Safe and calm environment with minimized noises was provided. Patient slept 7 hours, intake 850 ml, voided x3, stool x4. Patient scheduled for discharging today @0930. Encouraged to fluids intake as tolerated. Encouraged to attending groups activities. All needs met. Safety measures in the place by hospital policy: Call light within reach, bed in the lowest position locked, padded rails up x2. Patient endorsed to day shift nurse.
--- NOTE | 2017-06-19 07:30 | NUR ---
START OF SHIFT Pt 51 y/o female admitted for methadone withdrawal. Pt received in room on bed awake. Pt alert and oriented to name, place, and time. Perrla. Skin warm and dry to touch. Respirations even and unlabored. Pt irritable this morning. It was reported that pt slept for 7 hours last night. Pt completed a 7 day ativan taper and a 5 day subutex taper. Last cows=9 and ciwa=8 reported at 2100. It was reported that pt slept for 7 hours last night. Pt is scheduled to be discharged today. Bed on lowest position with side rails x 2 up for safety. Call light within reach.
[2017-06-19 08:00] VITALS: BP 114/78
[2017-06-19] MEDS: buPROPion XL 150 MG TAB.SR.24H PO SCH (08:20)
[2017-06-19] MEDS: GABAPENTIN 300 MG CAPSULE PO SCH (08:20)
[2017-06-19] MEDS: ESTRADIOL 1 MG TABLET PO SCH (08:20)
[2017-06-19] MEDS: CITALOPRAM 10 MG TABLET PO SCH (08:20)
--- NOTE | 2017-06-19 08:28 | NUR ---
PRN Pt states has headache /. Motrin po prn per MD order given and tolerated well.
[2017-06-19] MEDS: DOCUSATE SODIUM 100 MG CAPSULE PO SCH (08:29)
[2017-06-19] MEDS: DICYCLOMINE HCL 20 MG TABLET PO SCH (08:29)
--- NOTE | 2017-06-19 08:33 | NUR ---
PRN Pt with episode of loose stool. Immodium prn per MD order given and tolerated well.
--- NOTE | 2017-06-19 09:28 | NUR ---
[place] Pt observed walking around in room with television on.
--- NOTE | 2017-06-19 09:33 | NUR ---
PRN EVAL Pt denies any loose stool at this time.
--- NOTE | 2017-06-19 10:05 | NUR ---
DISCHARGE Pt 51 y/o female admitted for methadone withdrawal. Pt alert and oriented to name, place, and time. Perrla. Skin warm and dry to touch. Respirations even and unlabored. Pt with no hand tremors noted. VS wnl. All belongings, home medications, belongings in cabinet, prescriptions, and discharge papers packed in pt bag. No belongings in cassette noted. Pt denies any SI. Pt discharged via private transport.
== END 2017-06-19 10:05 | disposition home or self-care (01) | DRG 895 ==
LOC: SRC 06-12 13:48
PROVIDERS: ADMIT Internal Medicine; ATTEND Internal Medicine
PROC: HZ2ZZZZ Detoxification Services for Substance Abuse Treatment (ICD-10-PCS; principal; 2017-06-12)
PROC: HZ31ZZZ Individual Counseling for Substance Abuse Treatment, Behavioral (ICD-10-PCS; 2017-06-15)
DX: F11.23 Opioid dependence with withdrawal (principal); F31.9 Bipolar disorder, unspecified; G47.00 Insomnia, unspecified; G89.4 Chronic pain syndrome; N80.9 Endometriosis, unspecified; Z90.710 Acquired absence of both cervix and uterus; Z79.899 Other long term (current) drug therapy; K58.9 Irritable bowel syndrome, unspecified
CPT/HCPCS: 36415; 70030-TC; 80307; 83735; 84443; 84703; 85025; 86580; 86592; 86705; 86803; 87340; 87806; 90686; 93005; A4663; G0480; J1885; Q0162